=== PATIENT | female | born 1960 | race Two or more races ===

== ENCOUNTER 2024-01-04 09:03 | Emergency (ER) | payer OTHER ==
[~2024-01-04] VITALS: Ht 157.5 cm; Wt 33.6 kg
[2024-01-04] MEDS ORDERED: TRAMADOL HCL 50 MG TABLET PO ONE (09:45)
[2024-01-04] MEDS ORDERED: KETOROLAC TROMETHAMINE 60 MG VIAL IM ONE ×3 (10:30→11:58)
[2024-01-04] MEDS ORDERED: ACETAMINOPHEN 160MG/5 ML BLIST.PACK PO ONE (10:30)
[2024-01-04 11:18] LABS: HEMATOCRIT 41.5 % (36.0-45.00); HEMOGLOBIN 14.4 g/dL (12.0-15.00); MEAN CELL VOLUME 96.9 fL (80.00-100.00); MEAN CORPUSCULAR HEMOGLOBIN 33.7 pg (27.00-32.0); MEAN CORPUSCULAR HGB CONC 34.8 g/dl (32.0-36.0); PLATELET COUNT 146 K/uL (150-450); RED BLOOD COUNT 4.29 M/uL (4.00-6.00); RED CELL DISTRIBUTION WIDTH 14.1 % (11.5-14.5)
[2024-01-04 11:50] LABS: ERYTHROCYTE SEDIMENTATION RATE 38 mm/hr
[2024-01-04] MEDS ORDERED: VALACYCLOVIR1000 MG PO (12:23)
== END 2024-01-04 12:52 | disposition home or self-care (01) ==
LOC: ER 09:04
PROVIDERS: General Practice
DX: F41.8 Other specified anxiety disorders (principal); B00.9 Herpesviral infection, unspecified